=== PATIENT | female | born 1970 | race African-American/Black ===

== ENCOUNTER 2018-12-19 13:59 | Emergency (ER) | payer OTHER ==
[2018-12-19 14:09] VITALS: BP 102/63; PULSE 84; TEMP 98.4; BMI 30.7
--- NOTE | 2018-12-19 14:26 | PDOC ---
History of Present Illness - General Chief Complaint: Pain Stated Complaint: LT HAND WON'T CLOSE Time Seen by Provider: 12/19/18 14:16 History Source: Patient - History of Present Illness Occurred: reports: last week Severity: reports: moderate Upper Extremity Pain Location: left: hand, arm Past History - Past Medical History Allergies/Adverse Reactions: Allergies Allergy/AdvReac Type Severity Reaction Status Date / Time No Known Allergies Allergy Verified 12/19/18 14:09 Home Medications: Ambulatory Orders NK [No Known Home Medication] 12/19/18 - Suicide/Smoking/Psychosocial Hx Smoking History: Current every day smoker Information on smoking cessation initiated: No Review of Systems - Review of Systems Constitutional: No: Chills, Fever Respiratory: No: Shortness of Breath Cardiac (ROS): No: Chest Pain Musculoskeletal: Yes: Joint Pain, Neck Pain Neurological: Yes: Numbness. No: Headache, Tingling, Weakness *Physical Exam - Vital Signs Last Vital Signs Temp Pulse Resp BP Pulse Ox 98.4 F 84 18 102/63 97 12/19/18 14:07 12/19/18 14:07 12/19/18 14:07 12/19/18 14:07 12/19/18 14:07 - Physical Exam General Appearance: Yes: Appropriately Dressed. No: Apparent Distress HEENT: positive: Normal Voice Neck: positive: Supple. negative: Tender, Decreased range of motion Respiratory/Chest: negative: Respiratory Distress Extremity: positive: Other (+ttp to volar apect of L 4th metacarpal w/ difficulty make fist due to pain, sensation, srength and pulses intact) Integumentary: positive: Dry, Warm Neurologic: positive: Fully Oriented, Alert, Normal Mood/Affect, Motor Strength 5/5 Medical Decision Making - Medical Decision Making 12/19/18 14:20 48-year-old female, no significant history here w/ LUE pain. Patient states about a week ago she woke up with left-sided neck pain that has since resolved, but at some point developed pain down her left arm and now complaining of pain mostly to left hand and possible numbness of fingers. No active neck pain at this time. Denies upper extremity weakness. No chest pain or shortness of breath. No history of similar condition. No recent trauma. See exam Possibly MSL LUE pain vs arthritis vs cervical radiculopathy Exam only notable for ttp to volar aspect of L 4th metacarpal/mcp -Dc w/ pain control and PMD f/u *DC/Admit/Observation/Transfer Diagnosis at time of Disposition: Left arm pain, Neck pain - Discharge Dispostion Disposition: HOME Condition at time of disposition: Good - Referrals - Patient Instructions Additional Instructions: The cause of your left arm pain is unclear at this time and you will need further evaluation by her PMD. Please follow-up this week In the meantime, take Motrin or Tylenol as needed for pain - Post Discharge Activity Forms/Work/School Notes: Back to Work
== END 2018-12-19 14:30 | disposition home or self-care (01) ==
LOC: JERFT 13:59
DX: M79.602 Pain in left arm (principal); M54.2 Cervicalgia; F17.210 Nicotine dependence, cigarettes, uncomplicated
CPT/HCPCS: 99281-25